=== PATIENT | male | born 1970 | race Caucasian/White ===

== ENCOUNTER 2021-07-29 10:57 | Emergency (ER) | payer OTHER ==
[~2021-07-29] VITALS: Ht 180.3 cm; Wt 113.4 kg
[2021-07-29] MEDS ORDERED: LEVEMIR100 UNIT/1 (11:03)
[2021-07-29] MEDS ORDERED: LISINOPRIL10 MG PO (11:03)
[2021-07-29] MEDS ORDERED: METFORMIN HCL500 M3 PO (11:03)
[2021-07-29] MEDS ORDERED: BUPROPION XL300 MG PO (11:03)
[2021-07-29] MEDS ORDERED: PROAIR HFA8.5 GM INH (12:13)
[2021-07-29] MEDS ORDERED: APAP W/CODEINE1 TA2 PO (12:13)
[2021-07-29] MEDS ORDERED: TESSALON PERLE100 MG PO (12:13)
[2021-07-29 12:27] VITALS: BP 134/72
== END 2021-07-29 12:28 | disposition home or self-care (01) ==
LOC: M.ERS 10:57
DX: U07.1 COVID-19 (principal); E11.9 Type 2 diabetes mellitus without complications; Z79.899 Other long term (current) drug therapy; Z79.4 Long term (current) use of insulin; Z88.0 Allergy status to penicillin

== ENCOUNTER 2021-08-03 12:37 | Emergency (ER) | payer OTHER ==
[~2021-08-03] VITALS: Ht 180.3 cm; Wt 117.9 kg
[~2021-08-03 12:37] MED LIST: APAP W/CODEINE1 TA2 PO; BUPROPION XL300 MG PO; LEVEMIR100 UNIT/1; LISINOPRIL10 MG PO; METFORMIN HCL500 M3 PO; PROAIR HFA8.5 GM INH; TESSALON PERLE100 MG PO
[2021-08-03] MEDS ORDERED: DEXAMETHASONE 44 M1 PO (13:11)
[2021-08-03] MEDS ORDERED: ZPAK PO (13:11)
[2021-08-03] MEDS ORDERED: PROMETH-CODEIN 65 ML PO (13:11)
[2021-08-03 13:20] VITALS: BP 150/100
== END 2021-08-03 13:21 | disposition home or self-care (01) ==
LOC: M.ERS 12:37
DX: U07.1 COVID-19 (principal); E11.9 Type 2 diabetes mellitus without complications; Z79.4 Long term (current) use of insulin; Z79.899 Other long term (current) drug therapy; Z88.0 Allergy status to penicillin

== ENCOUNTER 2021-08-05 08:15 | Inpatient (IN) | payer OTHER ==
[~2021-08-05] VITALS: Ht 180.3 cm; Wt 89.1 kg
[~2021-08-05 08:15] MED LIST changes: +DEXAMETHASONE 44 M1 PO; +PROMETH-CODEIN 65 ML PO; +ZPAK PO
[2021-08-05 08:17] VITALS: BP 164/85
[2021-08-05 09:09] LABS: ABSOLUTE LYMPHOCYTES 0.7 thou/uL (0.8-5.3); ABSOLUTE MONOCYTES 0.5 thou/uL (0.0-1.2); ABSOLUTE NEUTROPHILS 5.9 thou/uL (1.6-8.1); BASOPHILS 0.1 %; HEMATOCRIT 46.1 % (42.0-52.0); HEMOGLOBIN 15.8 gm/dL (14.0-18.0); LYMPHOCYTES 9.3 %; MCH 30.5 pg (26.0-34.0); MCHC 34.2 g/dL (28.0-37.0); MCV 89.4 fL (80.0-100.0); MONOCYTES 6.9 %; NUCLEATED RBCS 0 /100WBC; PLATELET COUNT* 144 thou/uL (150-400); POLYS 83.7 %; RBC 5.16 mil/uL (4.50-6.00); RDW-CV 12.6 % (10.5-14.5); WBC 7.1 thou/uL (4.0-11.0)
[2021-08-05 09:40] LABS: CREATININE 1.3 mg/dL (0.6-1.3); POTASSIUM 4.6 mmol/L (3.5-5.1)
[2021-08-05 09:44] LABS: ALBUMIN 3.1 g/dL (3.4-5.0); MAGNESIUM 1.8 mg/dL (1.8-2.4); TOTAL BILIRUBIN 0.6 mg/dL (<0.1-1.0); TOTAL PROTEIN 7.2 g/dL (6.4-8.2)
--- NOTE | 2021-08-05 11:01 | EKG ---
[place] [address] ELECTROCARDIOGRAM REPORT Name: JULIA MITCHELL Room: [place] [address] ADM IN [facility]#: [id number] Admission: 08/05/21 Attend Phys: Gerard Fitzgerald Discharge: Date of : 68 Date of Service: 08/05/21 0838 Report #: [id number] THIS REPORT FOR: //name// [facility] ED Test Date: 2021-08-05 Test Time: 08:38:08 Pat Name: JULIA MITCHELL Department: Room: [facility] Gender: M Medical Lab Assistant: CD : 1970 Requested By: Charles Leonardo Order Number: [id number] MD: Juan Francisco Soto Measurements Intervals [place] Rate: 109 P: 47 IN: 139 QRS: 40 QRSD: 86 T: -43 QT: 325 QTc: 438 Interpretive Statements Sinus tachycardia Borderline T abnormalities, inferior leads No previous ECG available for comparison Electronically Signed On 08-05-2021 11:01:49 CDT by Juan Francisco Soto [email or web address] <ELECTRONICALLY SIGNED> By: Juan Francisco Soto MD, [facility] 08/05/21 1101 0838 0838 Juan Francisco Soto MD, [facility] /EPI
[2021-08-05 12:33] VITALS: BP 140/77
[2021-08-05 13:13] VITALS: BP 130/89
[2021-08-05 15:49] VITALS: BP 142/76
[2021-08-05 21:00] VITALS: BP 128/82
[2021-08-05 22:29] LABS: BE 3.7 mmol/L (-2 to +3); PCO2 37.3 mmHg (35.0-45.0); PO2 73.5 mmHg (75.0-100.0)
[2021-08-06] VITALS (7 sets, daily range): BP systolic 120–147; BP diastolic 78–88
[2021-08-06 05:58] LABS: HEMATOCRIT 40.1 % (42.0-52.0); MCH 30.5 pg (26.0-34.0); MCHC 34.8 g/dL (28.0-37.0); MCV 87.7 fL (80.0-100.0); MPV 7.6 fl. (7.2-11.1); RBC 4.57 mil/uL (4.50-6.00); RDW-CV 12.4 % (10.5-14.5); WBC 7.8 thou/uL (4.0-11.0)
[2021-08-06 06:10] LABS: CALCIUM 8.1 mg/dL (8.5-10.1); CREATININE 0.9 mg/dL (0.6-1.3)
[2021-08-07] VITALS: BP 136/84
[2021-08-07 04:00] VITALS: BP 147/84
[2021-08-07 05:00] LABS: HEMATOCRIT 40.7 % (42.0-52.0); HEMOGLOBIN 14.1 gm/dL (14.0-18.0); MCH 30.5 pg (26.0-34.0); MCHC 34.7 g/dL (28.0-37.0); MCV 88.1 fL (80.0-100.0); MPV 7.1 fl. (7.2-11.1); RBC 4.62 mil/uL (4.50-6.00); RDW-CV 12.6 % (10.5-14.5)
[2021-08-07 05:08] LABS: CALCIUM 8.5 mg/dL (8.5-10.1); CREATININE 0.8 mg/dL (0.6-1.3)
[2021-08-07 08:00] VITALS: BP 139/89
[2021-08-07 11:30] VITALS: BP 142/82
[2021-08-07 15:50] VITALS: BP 149/90
[2021-08-07 17:08] LABS: APTT 26.4 Seconds (25.0-31.3); PROTIME 10.8 Seconds (9.20-11.50)
[2021-08-07 18:37] LABS: URINE BILIRUBIN NEGATIVE (Negative); URINE BLOOD NEGATIVE (Negative); URINE CLARITY CLEAR; URINE COLOR YELLOW; URINE GLUCOSE-RANDOM TRACE (Negative); URINE KETONES 2+ (Negative); URINE LEUKOCYTES-REFLEX NEGATIVE (Negative); URINE NITRITE-REFLEX NEGATIVE (Negative); URINE PROTEIN 1+ (Negative); URINE SPECIFIC GRAVITY >= 1.030 (1.005-1.030)
[2021-08-08] VITALS (8 sets, daily range): BP systolic 106–153; BP diastolic 52–94
[2021-08-08 04:04] LABS: HEMATOCRIT 41.6 % (42.0-52.0); HEMOGLOBIN 14.3 gm/dL (14.0-18.0); MCH 30.9 pg (26.0-34.0); MCHC 34.5 g/dL (28.0-37.0); MCV 89.5 fL (80.0-100.0); NUCLEATED RBCS 0 /100WBC; PLATELET COUNT* 205 thou/uL (150-400); RBC 4.65 mil/uL (4.50-6.00); RDW-CV 12.7 % (10.5-14.5); WBC 5.1 thou/uL (4.0-11.0)
[2021-08-08 04:44] LABS: ALBUMIN 2.3 g/dL (3.4-5.0); CALCIUM 8.8 mg/dL (8.5-10.1); CREATININE 1.1 mg/dL (0.6-1.3); MAGNESIUM 2.3 mg/dL (1.8-2.4); TOTAL BILIRUBIN 0.7 mg/dL (<0.1-1.0); TOTAL PROTEIN 6.9 g/dL (6.4-8.2)
[2021-08-08 05:31] LABS: ABSOLUTE LYMPHOCYTES 0.4 thou/uL (0.8-5.3); ABSOLUTE MONOCYTES 0.2 thou/uL (0.0-1.2); ABSOLUTE NEUTROPHILS 4.5 thou/uL (1.6-8.1); LARGE PLATELETS FEW; PLATELET ESTIMATE ADEQUATE
[2021-08-08 05:32] LABS: TOXIC GRANULATION Occasional
[2021-08-08 13:15] LABS: PCO2 34.9 mmHg (35.0-45.0)
[2021-08-08 13:17] LABS: PO2 289.6 mmHg (75.0-100.0)
--- NOTE | 2021-08-08 13:48 | 2DMMODE ---
[place] [address] 2 D/M-MODE ECHOCARDIOGRAM Name: JULIA MITCHELL Room: [address] IN .Jemima.#: [id number] Admission: 08/05/21 Attend Phys: Gerard Fitzgerald Discharge: Date of : 68 Date of Service: 08/08/21 1348 Report #: [id number] THIS REPORT FOR: cc: FAM - No family physician/PCP FAM - No family physician/PCP Andrés Martinez MD [facility] ~ APPROVED REPORT Study performed: 08/08/2021 11:05:12 EXAM: Comprehensive 2D, Doppler, and color-flow Echocardiogram Patient Location: In-Patient Room #: 109 Status: routine BSA: 2.37 HR: 91 bpm BP: 106/52 mmHg Rhythm: NSR Other Information Study Quality: Good Indications HYPOXIA 2D Dimensions IVSd: 10.68 (7-11mm) LVOT Diam: 23.02 (18-24mm) LVDd: 39.96 mm PWd: 9.86 (7-11mm) Ascending Ao: 34.60 (22-36mm) LVDs: 27.46 (25-40mm) Aortic Root: 35.86 mm Volumes Left Atrial Volume (Systole) LA ESV Index: 16.80 mL/m2 Aortic Valve AoV Peak Gwyn.: 1.18 m/s AO Peak Gr.: 5.56 mmHg LVOT Max P.08 mmHg AO Mean Gr.: 2.83 mmHg LVOT Mean P.83 mmHg LVOT Max V: 1.01 m/s AO V2 VTI: 17.02 cm LVOT Mean V: 0.62 m/s ANABELLA (VTI): 4.10 cm2 LVOT V1 VTI: 16.76 [place] [address] 2 D/M-MODE ECHOCARDIOGRAM Name: JULIA MITCHELL Room: [address] IN [facility].#: [id number] Admission: 08/05/21 Attend Phys: Gerard Fitzgerald Discharge: Date of : 68 Date of Service: 08/08/21 1348 Report #: [id number] Mitral Valve E/A Ratio: 1.11 MV Decel. Time: 263.14 ms MV E Max Gwyn.: 0.72 m/s MV PHT: 76.31 ms MVA (PHT): 2.88 cm2 TDI E/Lateral E': 6.55 E/Medial E': 7.20 Medial E' Gwyn.: 0.10 m/s Lateral E' Gwyn.: 0.11 m/s Pulmonary Valve PV Peak Gwyn.: 0.90 m/s PV Peak Gr.: 3.27 mmHg Left Ventricle The left ventricle is normal size. There is normal LV segmental wall motion. There is normal left ventricular wall thickness. Left ventricular systolic function is normal. The left ventricular ejection fraction is within the normal range. LVEF is 60-65%. The left ventricular diastolic function is normal. Right Ventricle The right ventricle is normal size. The right ventricular systolic function is normal. Atria The left atrium size is normal. The right atrium size is normal. Aortic Valve The aortic valve is normal in structure. No aortic regurgitation is present. There is no aortic valvular stenosis. Mitral Valve The mitral valve is normal in structure. There is no mitral valve regurgitation noted. No evidence of mitral valve stenosis. Tricuspid Valve The tricuspid valve is normal in structure. Unable to assess PA pressure. Trace tricuspid regurgitation. Pulmonic Valve The pulmonary valve is normal in structure. [place] [address] 2 D/M-MODE ECHOCARDIOGRAM Name: JULIA MITCHELL Room: [address] IN [facility]#: [id number] Admission: 08/05/21 Attend Phys: Gerard Fitzgerald Discharge: Date of : 68 Date of Service: 08/08/21 1348 Report #: [id number] Great Vessels The aortic root is normal in size. IVC is normal in size and collapses >50% with inspiration. Pericardium There is no pericardial effusion. <Conclusion> The left ventricle is normal size. There is normal left ventricular wall thickness. Left ventricular systolic function is normal. The left ventricular ejection fraction is within the normal range. LVEF is 60-65%. The left ventricular diastolic function is normal. The right ventricle is normal size. The left atrium size is normal. The aortic valve is normal in structure. The mitral valve is normal in structure. The tricuspid valve is normal in structure. IVC is normal in size and collapses >50% with inspiration. There is no pericardial effusion. There is normal LV segmental wall motion. <ELECTRONICALLY SIGNED> By: Andrés Martinez MD, FACC 08/08/21 1348 1348 1348 Andrés Martinez MD, FACC /INF
--- NOTE | 2021-08-08 14:16 | CON ---
[address] [address] CONSULTATION Name: JULIA MITCHELL Room: [address] IN M.R.#: [id number] Admission: 08/05/21 Attend Phys: Rita Up Discharge: Date of : 68 Report #: [id number] THIS REPORT FOR: cc: PIPE - No family physician/PCP FAM - No family physician/PCP Ghanshyam Latif MD ~ DATE OF CONSULTATION: 08/07/2021 REQUESTING PHYSICIAN: Dr. Bhardwaj. INDICATION FOR CONSULTATION: Acute hypoxemic respiratory failure secondary to COVID-19. HISTORY OF PRESENT ILLNESS: A 51-year-old gentleman with past medical history is as mentioned below. He does not have a history of smoking. He is overweight with a body mass index of 37 and does have a history of diabetes, hypertension as well as posttraumatic stress disorder. The patient is now admitted with increasing shortness of breath 2 days ago, he had reported symptoms for 8 days prior to hospitalization. He has not been vaccinated for COVID-19. He reported progressively worsening shortness of breath as well as a significant cough as well as nausea. There is only scanty sputum production. No upper respiratory complaints. Mild swelling of lower extremities. No calf pain. Upon arrival, the patient's O2 saturation was 84% on room air. There has been a progressive worsening in his oxygen needs. The patient currently is on a BiPAP with 100% FiO2. He is tachypneic, respiratory rate has been around 35-40. So far, he appears to be well compensated with this. He is maintaining O2 saturation in the low 90s. The patient does not state that he is anxious; however, it does appear to me that he is. He does report that earlier he had a fever as well, but no chills. REVIEW OF SYSTEMS: Twelve points is negative except as mentioned above. PAST MEDICAL HISTORY: Diabetes, posttraumatic stress disorder, hypertension, and obesity. SOCIAL HISTORY: No known history of smoking, ethanol abuse, or drug abuse. CURRENT MEDICATIONS: List in [facility] reviewed. HOME MEDICATIONS: List also in [facility] reviewed. ALLERGIES: REPORTEDLY ALLERGIC TO PENICILLINS. FAMILY HISTORY: [place] [address] CONSULTATION Name: JULIA MITCHELL Room: [address]#: [id number] Admission: 08/05/21 Attend Phys: Rita Up Discharge: Date of : 68 Report #: [id number] PHYSICAL EXAMINATION: GENERAL: He is alert, awake, and oriented. VITAL SIGNS: He is on a BiPAP on AVAPS mode, tidal volume is set as 550, pressure support min is set at 14, EPAP is 12. Despite a high respiratory rate of 35-40, he appears to be well compensated at this time with a pulse of 90, blood pressure is 149/90. He is saturating 94%. He is afebrile with a temperature of 36.6. Body mass index 37. HEENT: Normocephalic and atraumatic. Pupils are equal, narrow airway. Throat examination is limited due to presence of BiPAP. NECK: Does not show raised JVP asymmetry, mass or lymph nodes. CHEST: Symmetrical expansion on inspection and palpation. On auscultation, breath sounds are bilaterally equal, but decreased. Expirations are prolonged. I feel that there is likely a component of bronchospasm as well. HEART: Regular. There is no murmur. ABDOMEN: Soft and nontender. EXTREMITIES: Lower extremities do show trace to 1+ edema bilaterally. There is no calf tenderness. SKIN: Dry and intact. NEUROLOGIC: Moves all extremities bilaterally equally and spontaneously with no focal deficit identified. LABORATORY AND IMAGING DATA: The patient's chest x-ray is obtained now and compared with a chest x-ray done 2 days ago. There are bilateral infiltrates with no major change compared with 2 days ago. He does have some cardiomegaly as well. The patient's lab work is in [facility]. This is reviewed. I do not have recent coags or D-dimer available. His COVID-19 antigen is positive. His BUN is mildly elevated to 20, but creatinine is normal at 0.8. Last magnesium is 1.8 from 2 days ago. ASSESSMENT AND PLAN: 1. Acute hypoxemic respiratory failure secondary to COVID-19. At this time, I would keep him on the BiPAP. I increased the target tidal volume to 600 and increased pressure support minimum to 16. We will see if this leads to any reduction in respiratory rate. Also, it appears to me that he is anxious. He is ordered p.r.n. Ativan IV; however, he has not received any. At this time, I would go ahead and give him low dose p.o. Xanax. Also, I switched his melatonin over to scheduled and we will see if this leads to a response. If he fails to improve, then I recommend having a low threshold of transferring him to the ICU and starting a Precedex drip. 2. COVID-19 with acute respiratory distress syndrome (ARDS). I reviewed the chest x-ray 2 days ago with a chest x-ray done today. Findings are consistent with ARDS secondary to COVID-19; however, it does not look worse compared with 2 days ago. If anything, it will be possible that it is slightly better. I [address] [address] CONSULTATION Name: JULIA MITCHELL Room: [address] IN M.R.#: [id number] Admission: 08/05/21 Attend Phys: Rita Up Discharge: Date of : 68 Report #: [id number] recommend starting dexamethasone considering significant hypoxemia as well as the fact that I feel that there likely is an underlying component of bronchospasm as well. We will start with giving him 10 mg now and then 8 b.i.d. I would expect his glucoses to rise with dexamethasone and recommend adjusting insulin accordingly. He is already on remdesivir and I recommend continuing the same. Watch LFTs while on remdesivir. I recommend giving him 1 dose of Actemra today as well. He has received 1 unit of convalescent plasma as well. I do not feel strongly either way regarding administering or holding off on a second unit of convalescent plasma. 3. Pulmonary infiltrates. He received only 2 doses of Zithromax at home. At this time, we will cover him with Levaquin for secondary bacterial infections. I did order a sputum culture and nasal swab for MRSA as well as a procalcitonin level. Once these are back, we will reassess. 4. Fluid overload. He does have a component of fluid overload as well. Note that the chest x-ray also does show some cardiomegaly as he has a history of hypertension. I will go ahead and give him Lasix. We will give him potassium and magnesium with Lasix as I do not want these to drop. 5. Evaluation for thromboembolic phenomena. Note that he has worsened despite the fact that his chest x-ray has not worsened. Therefore, I feel that we should evaluate for thromboembolism. I recommend obtaining coags including a D-dimer now. If the D-dimer is elevated, then I will evaluate for thromboembolism and in that case, pending evaluation, I may consider increasing the dose of Lovenox as well. Note to currently be on 30 mg b.i.d. 6. Diabetes. Would expect hyperglycemia to worsen on dexamethasone, but recommended adjusting insulin accordingly. 7. Gastrointestinal prophylaxis, Protonix. 8. Clostridium difficile prophylaxis, Lactinex. 9. Obesity. I suspect that there is obesity/suspected obstructive sleep apnea, on BiPAP. 10. Past medical history of hypertension. 11. Past medical history of posttraumatic stress disorder. The patient is critically ill at this time. Total time spent providing critical care to this patient today is 42 minutes. <ELECTRONICALLY SIGNED> By: Ghanshyam Latif MD 08/08/21 1416 1554 [id number] Latif MD /nt
[2021-08-09 00:06] VITALS: BP 155/93
[2021-08-09 03:46] VITALS: BP 158/85
[2021-08-09 09:15] LABS: HEMATOCRIT 42.4 % (42.0-52.0); HEMOGLOBIN 14.4 gm/dL (14.0-18.0); MCH 30.2 pg (26.0-34.0); MCV 88.6 fL (80.0-100.0); MPV 7.2 fl. (7.2-11.1); RBC 4.78 mil/uL (4.50-6.00); RDW-CV 12.6 % (10.5-14.5); WBC 11.6 thou/uL (4.0-11.0)
[2021-08-09 09:31] LABS: ALBUMIN 2.7 g/dL (3.4-5.0); CALCIUM 9.5 mg/dL (8.5-10.1); CREATININE 0.9 mg/dL (0.6-1.3); MAGNESIUM 2.1 mg/dL (1.8-2.4); POTASSIUM 4.2 mmol/L (3.5-5.1); TOTAL BILIRUBIN 0.6 mg/dL (<0.1-1.0); TOTAL PROTEIN 7.2 g/dL (6.4-8.2)
[2021-08-09 10:19] VITALS: BP 114/69
[2021-08-09 12:00] VITALS: BP 140/83
[2021-08-09 20:30] VITALS: BP 146/85
[2021-08-10] VITALS (7 sets, daily range): BP systolic 126–152; BP diastolic 70–92
[2021-08-10 04:59] LABS: ABSOLUTE EOSINOPHILS 0.1 thou/uL (0.0-0.7); ABSOLUTE LYMPHOCYTES 0.3 thou/uL (0.8-5.3); ABSOLUTE MONOCYTES 0.5 thou/uL (0.0-1.2); BASOPHILS 0.3 %; HEMATOCRIT 39.9 % (42.0-52.0); HEMOGLOBIN 13.7 gm/dL (14.0-18.0); LYMPHOCYTES 3.8 %; MCH 30.8 pg (26.0-34.0); MCHC 34.4 g/dL (28.0-37.0); MCV 89.5 fL (80.0-100.0); MONOCYTES 5.8 %; MPV 7.8 fl. (7.2-11.1); NUCLEATED RBCS 0 /100WBC; PLATELET COUNT* 298 thou/uL (150-400); POLYS 89.1 %; RBC 4.46 mil/uL (4.50-6.00); RDW-CV 12.5 % (10.5-14.5)
[2021-08-10 05:02] LABS: ALBUMIN 2.5 g/dL (3.4-5.0); ALKALINE PHOSPHATASE 79 U/L (46-116); ANION GAP < 0 mmol/L (7-16); BUN 24 mg/dL (7-18); CALCIUM 9.1 mg/dL (8.5-10.1); CHLORIDE 105 mmol/L (98-107); CO2 33 mmol/L (21-32); GLUCOSE 209 mg/dL (70-99); MAGNESIUM 1.9 mg/dL (1.8-2.4); POTASSIUM 4.4 mmol/L (3.5-5.1); SGOT 43 U/L (15-37); SGPT 40 U/L (30-65); SODIUM 134 mmol/L (136-145); TOTAL BILIRUBIN 0.5 mg/dL (<0.1-1.0); TOTAL PROTEIN 6.5 g/dL (6.4-8.2)
[2021-08-10 05:05] LABS: PREALBUMIN 15.4 mg/dL (18.0-35.7)
[2021-08-10 19:55] LABS: PCO2 38.1 mmHg (35.0-45.0); PO2 93.9 mmHg (75.0-100.0); pH 7.463 (7.340-7.450)
[2021-08-11] VITALS (26 sets, daily range): BP systolic 79–223; BP diastolic 43–126
[2021-08-11 08:11] LABS: ABSOLUTE EOSINOPHILS 0.1 thou/uL (0.0-0.7); ABSOLUTE LYMPHOCYTES 0.5 thou/uL (0.8-5.3); ABSOLUTE MONOCYTES 0.4 thou/uL (0.0-1.2); ABSOLUTE NEUTROPHILS 6.6 thou/uL (1.6-8.1); BASOPHILS 0.2 %; EOSINOPHILS 1.8 %; HEMATOCRIT 44.7 % (42.0-52.0); HEMOGLOBIN 15.2 gm/dL (14.0-18.0); LYMPHOCYTES 6.9 %; MCH 30.1 pg (26.0-34.0); MCHC 33.9 g/dL (28.0-37.0); MCV 88.9 fL (80.0-100.0); MONOCYTES 4.6 %; MPV 6.9 fl. (7.2-11.1); NUCLEATED RBCS 0 /100WBC; PLATELET COUNT* 306 thou/uL (150-400); POLYS 86.5 %; RBC 5.03 mil/uL (4.50-6.00); RDW-CV 12.6 % (10.5-14.5); WBC 7.6 thou/uL (4.0-11.0)
[2021-08-11 08:27] LABS: ALBUMIN 2.7 g/dL (3.4-5.0); CALCIUM 9.2 mg/dL (8.5-10.1); MAGNESIUM 2.1 mg/dL (1.8-2.4); POTASSIUM 5.2 mmol/L (3.5-5.1); TOTAL BILIRUBIN 0.7 mg/dL (<0.1-1.0); TOTAL PROTEIN 6.5 g/dL (6.4-8.2)
[2021-08-11 13:00] LABS: BE 5.7 mmol/L (-2 to +3); PCO2 39.9 mmHg (35.0-45.0); PO2 62.1 mmHg (75.0-100.0); pH 7.487 (7.340-7.450)
[2021-08-11 15:43] LABS: CALCIUM 8.6 mg/dL (8.5-10.1); CREATININE 1.1 mg/dL (0.6-1.3); POTASSIUM 4.9 mmol/L (3.5-5.1)
[2021-08-11 19:42] LABS: BE 1.8 mmol/L (-2 to +3); PO2 94.8 mmHg (75.0-100.0); pH 7.341 (7.340-7.450)
[2021-08-11 19:45] LABS: PCO2 54.9 mmHg (35.0-45.0)
[2021-08-12] VITALS (49 sets, daily range): BP systolic 92–157; BP diastolic 59–86
[2021-08-12 04:59] LABS: ABSOLUTE LYMPHOCYTES 0.3 thou/uL (0.8-5.3); ABSOLUTE MONOCYTES 0.5 thou/uL (0.0-1.2); ABSOLUTE NEUTROPHILS 8.9 thou/uL (1.6-8.1); BASOPHILS 0.2 %; EOSINOPHILS 0.3 %; HEMATOCRIT 43.8 % (42.0-52.0); HEMOGLOBIN 15.2 gm/dL (14.0-18.0); LYMPHOCYTES 2.9 %; MCH 30.7 pg (26.0-34.0); MCHC 34.8 g/dL (28.0-37.0); MCV 88.3 fL (80.0-100.0); MONOCYTES 5.2 %; NUCLEATED RBCS 0 /100WBC; PLATELET COUNT* 313 thou/uL (150-400); POLYS 91.4 %; RBC 4.96 mil/uL (4.50-6.00); RDW-CV 12.5 % (10.5-14.5); WBC 9.8 thou/uL (4.0-11.0)
[2021-08-12 05:27] LABS: ALBUMIN 2.7 g/dL (3.4-5.0); CALCIUM 8.1 mg/dL (8.5-10.1); CREATININE 1.3 mg/dL (0.6-1.3); MAGNESIUM 2.3 mg/dL (1.8-2.4); TOTAL BILIRUBIN 0.7 mg/dL (<0.1-1.0); TOTAL PROTEIN 6.3 g/dL (6.4-8.2)
[2021-08-12 05:43] LABS: POTASSIUM 6.2 mmol/L (3.5-5.1)
[2021-08-12 12:35] LABS: CALCIUM 8.1 mg/dL (8.5-10.1); CREATININE 1.3 mg/dL (0.6-1.3); POTASSIUM 5.4 mmol/L (3.5-5.1)
[2021-08-12 12:40] LABS: ALBUMIN 2.7 g/dL (3.4-5.0); MAGNESIUM 2.3 mg/dL (1.8-2.4); TOTAL BILIRUBIN 0.7 mg/dL (<0.1-1.0); TOTAL PROTEIN 6.3 g/dL (6.4-8.2)
[2021-08-12 12:48] LABS: BE 2.2 mmol/L (-2 to +3); PCO2 45.8 mmHg (35.0-45.0); PO2 91.5 mmHg (75.0-100.0); pH 7.399 (7.340-7.450)
[2021-08-12 19:11] LABS: URINE BILIRUBIN NEGATIVE (Negative); URINE BLOOD 2+ (Negative); URINE COLOR YELLOW; URINE GLUCOSE-RANDOM NEGATIVE (Negative); URINE KETONES NEGATIVE (Negative); URINE LEUKOCYTES-REFLEX NEGATIVE (Negative); URINE NITRITE-REFLEX NEGATIVE (Negative); URINE PROTEIN NEGATIVE (Negative); URINE SPECIFIC GRAVITY 1.025 (1.005-1.030); URINE UROBILINOGEN 0.2 E.U./dl (0.2-1.0)
[2021-08-12 19:20] LABS: URINE CLARITY HAZY
[2021-08-12 19:32] LABS: BACTERIA-REFLEX None Seen /HPF (None Seen); CASTS None Seen /LPF (None Seen); CRYSTALS None Seen /LPF (None Seen); SQUAMOUS 0-3 Few /LPF (0-3); URINE RBC 3-10 Few /HPF (0-2); URINE WBC-REFLEX 0-5 Rare /HPF (0-5)
[2021-08-13] VITALS (47 sets, daily range): BP systolic 70–156; BP diastolic 45–76
[2021-08-13 06:25] LABS: ABSOLUTE LYMPHOCYTES 0.5 thou/uL (0.8-5.3); ABSOLUTE MONOCYTES 0.6 thou/uL (0.0-1.2); ABSOLUTE NEUTROPHILS 8.5 thou/uL (1.6-8.1); BASOPHILS 0.1 %; EOSINOPHILS 0.4 %; HEMATOCRIT 43.7 % (42.0-52.0); LYMPHOCYTES 5.7 %; MCH 30.4 pg (26.0-34.0); MCHC 34.4 g/dL (28.0-37.0); MCV 88.4 fL (80.0-100.0); MONOCYTES 6.1 %; MPV 7.3 fl. (7.2-11.1); NUCLEATED RBCS 0 /100WBC; PLATELET COUNT* 241 thou/uL (150-400); POLYS 87.7 %; RBC 4.95 mil/uL (4.50-6.00); RDW-CV 12.4 % (10.5-14.5); WBC 9.7 thou/uL (4.0-11.0)
[2021-08-13 06:51] LABS: ALBUMIN 2.4 g/dL (3.4-5.0); CALCIUM 7.7 mg/dL (8.5-10.1); MAGNESIUM 2.2 mg/dL (1.8-2.4); PHOSPHORUS* 3.3 mg/dL (2.5-4.9); POTASSIUM 5.5 mmol/L (3.5-5.1); TOTAL BILIRUBIN 0.9 mg/dL (<0.1-1.0); TOTAL PROTEIN 5.9 g/dL (6.4-8.2)
[2021-08-13 07:04] LABS: PREALBUMIN 28.9 mg/dL (18.0-35.7)
[2021-08-13 09:16] LABS: BE 4.7 mmol/L (-2 to +3); PCO2 43.2 mmHg (35.0-45.0); PO2 98.5 mmHg (75.0-100.0)
[2021-08-14] VITALS (47 sets, daily range): BP systolic 103–150; BP diastolic 52–76
[2021-08-14 06:26] LABS: ABSOLUTE LYMPHOCYTES 0.6 thou/uL (0.8-5.3); ABSOLUTE MONOCYTES 0.8 thou/uL (0.0-1.2); ABSOLUTE NEUTROPHILS 10.9 thou/uL (1.6-8.1); BASOPHILS 0.2 %; EOSINOPHILS 0.1 %; HEMATOCRIT 40.1 % (42.0-52.0); HEMOGLOBIN 13.6 gm/dL (14.0-18.0); LYMPHOCYTES 5.2 %; MCV 88.3 fL (80.0-100.0); MONOCYTES 6.5 %; MPV 7.7 fl. (7.2-11.1); NUCLEATED RBCS 0 /100WBC; PLATELET COUNT* 171 thou/uL (150-400); RBC 4.54 mil/uL (4.50-6.00); RDW-CV 12.6 % (10.5-14.5); WBC 12.4 thou/uL (4.0-11.0)
[2021-08-14 06:47] LABS: ALBUMIN 2.3 g/dL (3.4-5.0); CALCIUM 7.4 mg/dL (8.5-10.1); CREATININE 1.1 mg/dL (0.6-1.3); TOTAL BILIRUBIN 0.9 mg/dL (<0.1-1.0); TOTAL PROTEIN 5.3 g/dL (6.4-8.2)
[2021-08-14 06:48] LABS: POTASSIUM 5.4 mmol/L (3.5-5.1)
[2021-08-14 06:50] LABS: PREALBUMIN 28.1 mg/dL (18.0-35.7)
[2021-08-14 11:29] LABS: BE 1.4 mmol/L (-2 to +3); PCO2 35.9 mmHg (35.0-45.0); PO2 80.2 mmHg (75.0-100.0); pH 7.459 (7.340-7.450)
[2021-08-15] VITALS (48 sets, daily range): BP systolic 100–140; BP diastolic 57–75
[2021-08-15 07:53] LABS: CALCIUM 7.8 mg/dL (8.5-10.1)
[2021-08-15 11:16] LABS: BE 3.1 mmol/L (-2 to +3); PCO2 40.8 mmHg (35.0-45.0); PO2 66.4 mmHg (75.0-100.0); pH 7.445 (7.340-7.450)
[2021-08-15 11:19] LABS: MAGNESIUM 2.1 mg/dL (1.8-2.4)
[2021-08-15 15:18] LABS: ABSOLUTE BASOPHILS 0.1 thou/uL (0.0-0.2); ABSOLUTE LYMPHOCYTES 0.9 thou/uL (0.8-5.3); ABSOLUTE MONOCYTES 1.1 thou/uL (0.0-1.2); ABSOLUTE NEUTROPHILS 14.4 thou/uL (1.6-8.1); BASOPHILS 0.6 %; EOSINOPHILS 0.1 %; HEMATOCRIT 39.1 % (42.0-52.0); HEMOGLOBIN 13.1 gm/dL (14.0-18.0); LYMPHOCYTES 5.2 %; MCH 29.9 pg (26.0-34.0); MCHC 33.5 g/dL (28.0-37.0); MONOCYTES 6.6 %; MPV 7.6 fl. (7.2-11.1); NUCLEATED RBCS 0 /100WBC; PLATELET COUNT* 163 thou/uL (150-400); POLYS 87.5 %; RBC 4.39 mil/uL (4.50-6.00); RDW-CV 12.7 % (10.5-14.5); WBC 16.5 thou/uL (4.0-11.0)
[2021-08-15 15:30] LABS: ALBUMIN 4.8 g/dL (3.4-5.0); CALCIUM 7.2 mg/dL (8.5-10.1); DIRECT BILIRUBIN 0.3 mg/dL (<0.1-0.3); POTASSIUM 4.3 mmol/L (3.5-5.1); TOTAL BILIRUBIN 0.8 mg/dL (<0.1-1.0); TOTAL PROTEIN 7.1 g/dL (6.4-8.2)
[2021-08-16] VITALS (48 sets, daily range): BP systolic 104–162; BP diastolic 53–79
[2021-08-16 03:55] LABS: HEMATOCRIT 37.7 % (42.0-52.0); MCHC 34.6 g/dL (28.0-37.0)
[2021-08-16 03:57] LABS: MCH 30.3 pg (26.0-34.0); MCV 87.4 fL (80.0-100.0); MPV 10.1 fl. (7.2-11.1); NUCLEATED RBCS 0 /100WBC; RBC 4.31 mil/uL (4.50-6.00); RDW-CV 13.6 % (10.5-14.5); WBC 15.2 thou/uL (4.0-11.0)
[2021-08-16 04:09] LABS: PLATELET COUNT* 261 thou/uL (150-400)
[2021-08-16 05:11] LABS: ALBUMIN 2.9 g/dL (3.4-5.0); CALCIUM 7.8 mg/dL (8.5-10.1); MAGNESIUM 2.1 mg/dL (1.8-2.4); POTASSIUM 4.7 mmol/L (3.5-5.1); TOTAL PROTEIN 5.2 g/dL (6.4-8.2)
[2021-08-16 07:03] LABS: ABSOLUTE LYMPHOCYTES 1.4 thou/uL (0.8-5.3); ABSOLUTE MONOCYTES 0.3 thou/uL (0.0-1.2); ABSOLUTE NEUTROPHILS 13.5 thou/uL (1.6-8.1); ANISOCYTOSIS 1+; PLATELET ESTIMATE ADEQUATE; POIKILOCYTOSIS 1+
[2021-08-16 08:31] LABS: BE 0.3 mmol/L (-2 to +3); PCO2 38.1 mmHg (35.0-45.0); PO2 77.5 mmHg (75.0-100.0); pH 7.426 (7.340-7.450)
[2021-08-17] VITALS (76 sets, daily range): BP systolic 84–156; BP diastolic 49–78
[2021-08-17 04:01] LABS: ABSOLUTE LYMPHOCYTES 0.7 thou/uL (0.8-5.3); ABSOLUTE MONOCYTES 0.7 thou/uL (0.0-1.2); ABSOLUTE NEUTROPHILS 12.7 thou/uL (1.6-8.1); BASOPHILS 0.3 %; EOSINOPHILS 0.1 %; HEMATOCRIT 37.4 % (42.0-52.0); HEMOGLOBIN 12.6 gm/dL (14.0-18.0); LYMPHOCYTES 4.6 %; MCH 30.2 pg (26.0-34.0); MCHC 33.6 g/dL (28.0-37.0); MCV 89.7 fL (80.0-100.0); MONOCYTES 4.9 %; MPV 9.9 fl. (7.2-11.1); NUCLEATED RBCS 0 /100WBC; POLYS 90.1 %; RBC 4.17 mil/uL (4.50-6.00); RDW-CV 13.2 % (10.5-14.5); WBC 14.1 thou/uL (4.0-11.0)
[2021-08-17 04:11] LABS: PLATELET COUNT* 180 thou/uL (150-400)
[2021-08-17 04:21] LABS: ALBUMIN 2.7 g/dL (3.4-5.0); CALCIUM 7.7 mg/dL (8.5-10.1); CREATININE 0.8 mg/dL (0.6-1.3); POTASSIUM 4.6 mmol/L (3.5-5.1); TOTAL BILIRUBIN 0.9 mg/dL (<0.1-1.0)
[2021-08-17 04:25] LABS: CALCIUM 7.6 mg/dL (8.5-10.1); CREATININE 0.7 mg/dL (0.6-1.3); PHOSPHORUS* 3.3 mg/dL (2.5-4.9); POTASSIUM 4.6 mmol/L (3.5-5.1)
[2021-08-17 08:49] LABS: BE 0 mmol/L (-2 to +3); PCO2 36.4 mmHg (35.0-45.0); PO2 74.6 mmHg (75.0-100.0); pH 7.435 (7.340-7.450)
[2021-08-18] VITALS (94 sets, daily range): BP systolic 83–140; BP diastolic 50–86
[2021-08-18 04:49] LABS: ABSOLUTE LYMPHOCYTES 0.4 thou/uL (0.8-5.3); ABSOLUTE MONOCYTES 0.7 thou/uL (0.0-1.2); ABSOLUTE NEUTROPHILS 13.3 thou/uL (1.6-8.1); BASOPHILS 0.2 %; HEMATOCRIT 35.9 % (42.0-52.0); HEMOGLOBIN 12.2 gm/dL (14.0-18.0); LYMPHOCYTES 2.8 %; MCH 30.4 pg (26.0-34.0); MCV 89.5 fL (80.0-100.0); MONOCYTES 4.6 %; MPV 8.5 fl. (7.2-11.1); NUCLEATED RBCS 0 /100WBC; PLATELET COUNT* 143 thou/uL (150-400); POLYS 92.4 %; RBC 4.01 mil/uL (4.50-6.00); WBC 14.3 thou/uL (4.0-11.0)
[2021-08-18 05:12] LABS: ALBUMIN 2.5 g/dL (3.4-5.0); CALCIUM 7.7 mg/dL (8.5-10.1); CREATININE 0.7 mg/dL (0.6-1.3); POTASSIUM 5.1 mmol/L (3.5-5.1); TOTAL BILIRUBIN 0.7 mg/dL (<0.1-1.0); TOTAL PROTEIN 4.9 g/dL (6.4-8.2)
[2021-08-18 05:17] LABS: CALCIUM 7.7 mg/dL (8.5-10.1); CREATININE 0.7 mg/dL (0.6-1.3); PHOSPHORUS* 3.9 mg/dL (2.5-4.9); POTASSIUM 5.1 mmol/L (3.5-5.1)
[2021-08-18 09:22] LABS: BE 1.3 mmol/L (-2 to +3); PCO2 44.8 mmHg (35.0-45.0); PO2 73.6 mmHg (75.0-100.0); pH 7.392 (7.340-7.450)
[2021-08-19] VITALS (42 sets, daily range): BP systolic 84–119; BP diastolic 54–76
[2021-08-19 03:58] LABS: ABSOLUTE LYMPHOCYTES 0.4 thou/uL (0.8-5.3); ABSOLUTE MONOCYTES 0.7 thou/uL (0.0-1.2); BASOPHILS 0.2 %; HEMATOCRIT 36.9 % (42.0-52.0); HEMOGLOBIN 12.9 gm/dL (14.0-18.0); LYMPHOCYTES 2.6 %; MCH 30.9 pg (26.0-34.0); MCHC 34.9 g/dL (28.0-37.0); MCV 88.5 fL (80.0-100.0); MONOCYTES 4.8 %; MPV 7.8 fl. (7.2-11.1); NUCLEATED RBCS 0 /100WBC; PLATELET COUNT* 154 thou/uL (150-400); POLYS 92.4 %; RBC 4.17 mil/uL (4.50-6.00); RDW-CV 12.3 % (10.5-14.5); WBC 15.2 thou/uL (4.0-11.0)
[2021-08-19 04:18] LABS: ALBUMIN 3.2 g/dL (3.4-5.0); CALCIUM 8.1 mg/dL (8.5-10.1); CREATININE 0.7 mg/dL (0.6-1.3); MAGNESIUM 2.2 mg/dL (1.8-2.4); POTASSIUM 4.8 mmol/L (3.5-5.1); TOTAL PROTEIN 5.5 g/dL (6.4-8.2)
[2021-08-19 08:57] LABS: BE 6.9 mmol/L (-2 to +3); PCO2 44.9 mmHg (35.0-45.0); PO2 79.3 mmHg (75.0-100.0); pH 7.465 (7.340-7.450)
[2021-08-20] VITALS (38 sets, daily range): BP systolic 89–127; BP diastolic 38–77
[2021-08-20 11:26] LABS: HEMOGLOBIN 12.4 gm/dL (14.0-18.0); MCH 30.2 pg (26.0-34.0); MCHC 33.5 g/dL (28.0-37.0); MCV 90.1 fL (80.0-100.0); MPV 7.6 fl. (7.2-11.1); NUCLEATED RBCS 0 /100WBC; PLATELET COUNT* 144 thou/uL (150-400); RDW-CV 12.8 % (10.5-14.5); WBC 12.7 thou/uL (4.0-11.0)
[2021-08-20 11:39] LABS: ALBUMIN 3.4 g/dL (3.4-5.0); CALCIUM 8.5 mg/dL (8.5-10.1); CREATININE 0.6 mg/dL (0.6-1.3); POTASSIUM 4.6 mmol/L (3.5-5.1); TOTAL PROTEIN 5.5 g/dL (6.4-8.2)
[2021-08-20 12:19] LABS: ABSOLUTE LYMPHOCYTES 0.3 thou/uL (0.8-5.3); ABSOLUTE MONOCYTES 0.9 thou/uL (0.0-1.2); ABSOLUTE NEUTROPHILS 11.6 thou/uL (1.6-8.1); ANISOCYTOSIS 1+; PLATELET ESTIMATE DECREASED; POIKILOCYTOSIS 1+
[2021-08-20 12:40] LABS: BE 2.8 mmol/L (-2 to +3); PCO2 41.5 mmHg (35.0-45.0); pH 7.436 (7.340-7.450)
[2021-08-20 12:45] LABS: PO2 44.5 mmHg (75.0-100.0)
[2021-08-21] VITALS (39 sets, daily range): BP systolic 82–128; BP diastolic 30–92
[2021-08-21 06:28] LABS: ABSOLUTE LYMPHOCYTES 0.4 thou/uL (0.8-5.3); ABSOLUTE MONOCYTES 0.7 thou/uL (0.0-1.2); ABSOLUTE NEUTROPHILS 10.3 thou/uL (1.6-8.1); BASOPHILS 0.1 %; EOSINOPHILS 0.1 %; HEMATOCRIT 39.4 % (42.0-52.0); HEMOGLOBIN 13.1 gm/dL (14.0-18.0); LYMPHOCYTES 3.7 %; MCH 30.6 pg (26.0-34.0); MCHC 33.3 g/dL (28.0-37.0); MCV 91.8 fL (80.0-100.0); MONOCYTES 6.1 %; MPV 7.6 fl. (7.2-11.1); NUCLEATED RBCS 0 /100WBC; PLATELET COUNT* 166 thou/uL (150-400); RBC 4.29 mil/uL (4.50-6.00); RDW-CV 12.9 % (10.5-14.5); WBC 11.5 thou/uL (4.0-11.0)
[2021-08-21 06:58] LABS: ALBUMIN 3.4 g/dL (3.4-5.0); CALCIUM 8.5 mg/dL (8.5-10.1); CREATININE 0.5 mg/dL (0.6-1.3); MAGNESIUM 2.2 mg/dL (1.8-2.4); POTASSIUM 4.3 mmol/L (3.5-5.1); TOTAL BILIRUBIN 1.2 mg/dL (<0.1-1.0); TOTAL PROTEIN 5.7 g/dL (6.4-8.2)
[2021-08-21 07:19] LABS: PHOSPHORUS* 4.2 mg/dL (2.5-4.9)
[2021-08-22] VITALS (30 sets, daily range): BP systolic 85–112; BP diastolic 55–71
[2021-08-22 04:23] LABS: ABSOLUTE LYMPHOCYTES 0.4 thou/uL (0.8-5.3); ABSOLUTE MONOCYTES 0.6 thou/uL (0.0-1.2); ABSOLUTE NEUTROPHILS 10.6 thou/uL (1.6-8.1); BASOPHILS 0.4 %; EOSINOPHILS 0.3 %; HEMATOCRIT 40.7 % (42.0-52.0); HEMOGLOBIN 13.5 gm/dL (14.0-18.0); LYMPHOCYTES 3.3 %; MCH 30.5 pg (26.0-34.0); MCHC 33.3 g/dL (28.0-37.0); MCV 91.5 fL (80.0-100.0); MPV 7.3 fl. (7.2-11.1); NUCLEATED RBCS 0 /100WBC; PLATELET COUNT* 172 thou/uL (150-400); RBC 4.45 mil/uL (4.50-6.00); RDW-CV 13.5 % (10.5-14.5); WBC 11.6 thou/uL (4.0-11.0)
[2021-08-22 04:50] LABS: ALBUMIN 3.4 g/dL (3.4-5.0); CALCIUM 8.3 mg/dL (8.5-10.1); CREATININE 0.6 mg/dL (0.6-1.3); POTASSIUM 4.6 mmol/L (3.5-5.1); TOTAL BILIRUBIN 1.4 mg/dL (<0.1-1.0); TOTAL PROTEIN 5.9 g/dL (6.4-8.2)
[2021-08-23] VITALS (12 sets, daily range): BP systolic 84–125; BP diastolic 47–73
[2021-08-23 05:14] LABS: ABSOLUTE LYMPHOCYTES 0.3 thou/uL (0.8-5.3); ABSOLUTE MONOCYTES 0.5 thou/uL (0.0-1.2); ABSOLUTE NEUTROPHILS 8.2 thou/uL (1.6-8.1); BASOPHILS 0.2 %; EOSINOPHILS 0.4 %; HEMATOCRIT 40.4 % (42.0-52.0); HEMOGLOBIN 13.7 gm/dL (14.0-18.0); LYMPHOCYTES 3.7 %; MCV 91.1 fL (80.0-100.0); MONOCYTES 5.9 %; MPV 7.3 fl. (7.2-11.1); NUCLEATED RBCS 0 /100WBC; PLATELET COUNT* 169 thou/uL (150-400); POLYS 89.8 %; RBC 4.44 mil/uL (4.50-6.00); RDW-CV 13.4 % (10.5-14.5); WBC 9.2 thou/uL (4.0-11.0)
[2021-08-23 05:20] LABS: CALCIUM 8.3 mg/dL (8.5-10.1); CREATININE 0.5 mg/dL (0.6-1.3); POTASSIUM 4.3 mmol/L (3.5-5.1)
[2021-08-24] VITALS (15 sets, daily range): BP systolic 107–158; BP diastolic 48–92
[2021-08-24 05:59] LABS: HEMOGLOBIN 13.6 gm/dL (14.0-18.0); MCH 30.9 pg (26.0-34.0); MCV 90.7 fL (80.0-100.0); MPV 7.4 fl. (7.2-11.1); NUCLEATED RBCS 0 /100WBC; PLATELET COUNT* 183 thou/uL (150-400); RBC 4.41 mil/uL (4.50-6.00); RDW-CV 13.7 % (10.5-14.5); WBC 9.1 thou/uL (4.0-11.0)
[2021-08-24 06:14] LABS: ALBUMIN 3.2 g/dL (3.4-5.0); CALCIUM 8.3 mg/dL (8.5-10.1); CREATININE 0.5 mg/dL (0.6-1.3); POTASSIUM 4.4 mmol/L (3.5-5.1); TOTAL BILIRUBIN 1.3 mg/dL (<0.1-1.0); TOTAL PROTEIN 5.8 g/dL (6.4-8.2)
[2021-08-24 11:12] LABS: ABSOLUTE LYMPHOCYTES 0.5 thou/uL (0.8-5.3); ABSOLUTE MONOCYTES 0.4 thou/uL (0.0-1.2); ABSOLUTE NEUTROPHILS 8.2 thou/uL (1.6-8.1); ATYPICAL LYMPHS 3 %; PLATELET ESTIMATE ADEQUATE
[2021-08-25] VITALS (36 sets, daily range): BP systolic 112–147; BP diastolic 62–93
[2021-08-25 04:57] LABS: ABSOLUTE LYMPHOCYTES 0.5 thou/uL (0.8-5.3); ABSOLUTE MONOCYTES 0.7 thou/uL (0.0-1.2); ABSOLUTE NEUTROPHILS 9.3 thou/uL (1.6-8.1); BASOPHILS 0.3 %; EOSINOPHILS 0.2 %; HEMATOCRIT 41.1 % (42.0-52.0); HEMOGLOBIN 14.2 gm/dL (14.0-18.0); LYMPHOCYTES 5.1 %; MCHC 34.6 g/dL (28.0-37.0); MCV 89.8 fL (80.0-100.0); MONOCYTES 6.9 %; MPV 6.6 fl. (7.2-11.1); NUCLEATED RBCS 0 /100WBC; PLATELET COUNT* 183 thou/uL (150-400); POLYS 87.5 %; RBC 4.58 mil/uL (4.50-6.00); RDW-CV 13.5 % (10.5-14.5); WBC 10.7 thou/uL (4.0-11.0)
[2021-08-25 05:11] LABS: ALBUMIN 3.2 g/dL (3.4-5.0); CALCIUM 8.4 mg/dL (8.5-10.1); CREATININE 0.5 mg/dL (0.6-1.3); POTASSIUM 4.3 mmol/L (3.5-5.1); TOTAL BILIRUBIN 1.5 mg/dL (<0.1-1.0); TOTAL PROTEIN 6.2 g/dL (6.4-8.2)
[2021-08-26] VITALS (36 sets, daily range): BP systolic 102–152; BP diastolic 51–82
[2021-08-26 04:40] LABS: ABSOLUTE LYMPHOCYTES 0.2 thou/uL (0.8-5.3); ABSOLUTE MONOCYTES 0.5 thou/uL (0.0-1.2); BASOPHILS 0.1 %; HEMATOCRIT 41.5 % (42.0-52.0); HEMOGLOBIN 14.1 gm/dL (14.0-18.0); LYMPHOCYTES 2.7 %; MCH 30.8 pg (26.0-34.0); MCHC 33.9 g/dL (28.0-37.0); MCV 90.7 fL (80.0-100.0); MONOCYTES 5.4 %; MPV 7.5 fl. (7.2-11.1); NUCLEATED RBCS 0 /100WBC; PLATELET COUNT* 171 thou/uL (150-400); POLYS 91.8 %; RBC 4.58 mil/uL (4.50-6.00); RDW-CV 13.5 % (10.5-14.5); WBC 8.7 thou/uL (4.0-11.0)
[2021-08-26 05:05] LABS: ALBUMIN 3.3 g/dL (3.4-5.0); CALCIUM 8.5 mg/dL (8.5-10.1); CREATININE 0.6 mg/dL (0.6-1.3); POTASSIUM 4.3 mmol/L (3.5-5.1); TOTAL BILIRUBIN 1.3 mg/dL (<0.1-1.0); TOTAL PROTEIN 6.6 g/dL (6.4-8.2)
[2021-08-27] VITALS (26 sets, daily range): BP systolic 100–189; BP diastolic 54–89
[2021-08-27 04:59] LABS: HEMATOCRIT 40.4 % (42.0-52.0); HEMOGLOBIN 13.8 gm/dL (14.0-18.0); MCH 30.9 pg (26.0-34.0); MCHC 34.3 g/dL (28.0-37.0); MCV 90.3 fL (80.0-100.0); MPV 7.3 fl. (7.2-11.1); NUCLEATED RBCS 0 /100WBC; PLATELET COUNT* 181 thou/uL (150-400); RBC 4.47 mil/uL (4.50-6.00); RDW-CV 13.7 % (10.5-14.5); WBC 8.8 thou/uL (4.0-11.0)
[2021-08-27 05:16] LABS: CALCIUM 8.7 mg/dL (8.5-10.1); CREATININE 0.5 mg/dL (0.6-1.3); POTASSIUM 4.3 mmol/L (3.5-5.1)
[2021-08-27 06:12] LABS: ABSOLUTE LYMPHOCYTES 0.4 thou/uL (0.8-5.3); ABSOLUTE MONOCYTES 0.4 thou/uL (0.0-1.2)
[2021-08-27 06:14] LABS: PLATELET ESTIMATE ADEQUATE
[2021-08-28] VITALS (28 sets, daily range): BP systolic 105–161; BP diastolic 48–95
[2021-08-28 15:00] LABS: BE 3.5 mmol/L (-2 to +3); PCO2 34.8 mmHg (35.0-45.0); PO2 73.1 mmHg (75.0-100.0); pH 7.498 (7.340-7.450)
[2021-08-28 15:08] LABS: URINE BILIRUBIN NEGATIVE (Negative); URINE BLOOD 2+ (Negative); URINE COLOR YELLOW; URINE GLUCOSE-RANDOM 1+ (Negative); URINE KETONES NEGATIVE (Negative); URINE LEUKOCYTES-REFLEX NEGATIVE (Negative); URINE PROTEIN TRACE (Negative); URINE SPECIFIC GRAVITY 1.025 (1.005-1.030)
[2021-08-28 15:09] LABS: ABSOLUTE LYMPHOCYTES 0.3 thou/uL (0.8-5.3); ABSOLUTE MONOCYTES 0.5 thou/uL (0.0-1.2); ABSOLUTE NEUTROPHILS 8.8 thou/uL (1.6-8.1); BASOPHILS 0.1 %; HEMATOCRIT 40.9 % (42.0-52.0); HEMOGLOBIN 14.1 gm/dL (14.0-18.0); LYMPHOCYTES 2.9 %; MCHC 34.4 g/dL (28.0-37.0); MCV 90.2 fL (80.0-100.0); MPV 7.3 fl. (7.2-11.1); NUCLEATED RBCS 0 /100WBC; PLATELET COUNT* 173 thou/uL (150-400); RBC 4.54 mil/uL (4.50-6.00); RDW-CV 13.5 % (10.5-14.5); WBC 9.5 thou/uL (4.0-11.0)
[2021-08-28 15:09] LABS: URINE CLARITY HAZY; URINE NITRITE-REFLEX POSITIVE (Negative)
[2021-08-28 15:11] LABS: BACTERIA-REFLEX >30 Many /HPF (None Seen); CASTS None Seen /LPF (None Seen); CRYSTALS None Seen /LPF (None Seen); SQUAMOUS 0-3 Few /LPF (0-3); URINE RBC >20 Many /HPF (0-2); URINE WBC-REFLEX 0-5 Rare /HPF (0-5)
[2021-08-28 15:20] LABS: CALCIUM 8.9 mg/dL (8.5-10.1); CREATININE 0.5 mg/dL (0.6-1.3); POTASSIUM 4.1 mmol/L (3.5-5.1)
[2021-08-28 15:24] LABS: ALBUMIN 3.1 g/dL (3.4-5.0); TOTAL BILIRUBIN 0.6 mg/dL (<0.1-1.0); TOTAL PROTEIN 6.6 g/dL (6.4-8.2)
[2021-08-29] VITALS (36 sets, daily range): BP systolic 99–143; BP diastolic 53–95
[2021-08-29 06:38] LABS: ABSOLUTE LYMPHOCYTES 0.4 thou/uL (0.8-5.3); ABSOLUTE MONOCYTES 0.6 thou/uL (0.0-1.2); ABSOLUTE NEUTROPHILS 7.2 thou/uL (1.6-8.1); BASOPHILS 0.2 %; EOSINOPHILS 0.4 %; HEMATOCRIT 39.7 % (42.0-52.0); HEMOGLOBIN 13.5 gm/dL (14.0-18.0); MCH 30.7 pg (26.0-34.0); MCHC 34.1 g/dL (28.0-37.0); MCV 90.1 fL (80.0-100.0); MONOCYTES 6.8 %; MPV 6.9 fl. (7.2-11.1); NUCLEATED RBCS 0 /100WBC; PLATELET COUNT* 147 thou/uL (150-400); POLYS 87.6 %; RDW-CV 13.1 % (10.5-14.5); WBC 8.2 thou/uL (4.0-11.0)
[2021-08-29 06:58] LABS: ALBUMIN 2.8 g/dL (3.4-5.0); CALCIUM 8.5 mg/dL (8.5-10.1); CREATININE 0.5 mg/dL (0.6-1.3); MAGNESIUM 1.8 mg/dL (1.8-2.4); PHOSPHORUS* 2.8 mg/dL (2.5-4.9); POTASSIUM 4.1 mmol/L (3.5-5.1); TOTAL BILIRUBIN 0.7 mg/dL (<0.1-1.0); TOTAL PROTEIN 6.4 g/dL (6.4-8.2)
[2021-08-30] VITALS (59 sets, daily range): BP systolic 83–158; BP diastolic 53–108
[2021-08-30 04:52] LABS: ABSOLUTE EOSINOPHILS 0.1 thou/uL (0.0-0.7); ABSOLUTE LYMPHOCYTES 0.6 thou/uL (0.8-5.3); ABSOLUTE MONOCYTES 0.4 thou/uL (0.0-1.2); ABSOLUTE NEUTROPHILS 5.9 thou/uL (1.6-8.1); BASOPHILS 0.1 %; EOSINOPHILS 1.2 %; HEMOGLOBIN 11.8 gm/dL (14.0-18.0); LYMPHOCYTES 8.4 %; MCH 31.4 pg (26.0-34.0); MCHC 34.6 g/dL (28.0-37.0); MCV 90.7 fL (80.0-100.0); MONOCYTES 5.3 %; MPV 7.2 fl. (7.2-11.1); NUCLEATED RBCS 0 /100WBC; PLATELET COUNT* 135 thou/uL (150-400); RBC 3.75 mil/uL (4.50-6.00); RDW-CV 13.6 % (10.5-14.5); WBC 6.9 thou/uL (4.0-11.0)
[2021-08-30 05:01] LABS: ALBUMIN 2.8 g/dL (3.4-5.0); CALCIUM 8.7 mg/dL (8.5-10.1); CREATININE 0.5 mg/dL (0.6-1.3); POTASSIUM 3.8 mmol/L (3.5-5.1); TOTAL BILIRUBIN 0.6 mg/dL (<0.1-1.0)
[2021-08-30 05:04] LABS: MAGNESIUM 2.2 mg/dL (1.8-2.4); PHOSPHORUS* 3.9 mg/dL (2.5-4.9)
--- NOTE | 2021-08-30 11:31 | EKG ---
[place] [address] ELECTROCARDIOGRAM REPORT Name: JULIA MITCHELL Room: [address] ADM IN M.R.#: [id number] Admission: 08/05/21 Attend Phys: Gerard Fitzgerald Discharge: Date of : 68 Date of Service: 08/29/21 1459 Report #: [id number] THIS REPORT FOR: //name// [facility] Test Date: 2021-08-29 Test Time: 14:59:10 Pat Name: JULIA MITCHELL Department: Room: [address] Gender: M Ring Sorter: GRZEGORZ : 1970 Requested By: Kaitlin Bhardwaj Order Number: [id number] Bertha MD: Juan Francisco Soto Measurements Intervals [place] Rate: 88 P: 50 CA: QRS: 44 QRSD: 94 T: 208 QT: 362 QTc: 438 Interpretive Statements sinus rhythm Nonspecific T abnormalities, diffuse leads Baseline wander in lead(s) V1 Compared to ECG 08/05/2021 08:38:08 Sinus tachycardia no longer present T-wave abnormality still present Electronically Signed On 08-30-2021 11:31:35 CDT by Juan Francisco Soto [email or web address] <ELECTRONICALLY SIGNED> By: Juan Francisco Soto MD, FACC 08/30/21 1131 1459 1459 Juan Francisco Soto MD, FACC /EPI
[2021-08-31] VITALS (33 sets, daily range): BP systolic 96–142; BP diastolic 60–110
[2021-08-31 04:56] LABS: HEMATOCRIT 35.4 % (42.0-52.0); HEMOGLOBIN 12.3 gm/dL (14.0-18.0); MCH 31.2 pg (26.0-34.0); MCHC 34.6 g/dL (28.0-37.0); NUCLEATED RBCS 0 /100WBC; PLATELET COUNT* 160 thou/uL (150-400); RBC 3.94 mil/uL (4.50-6.00); RDW-CV 13.9 % (10.5-14.5); WBC 7.9 thou/uL (4.0-11.0)
[2021-08-31 05:00] LABS: ALBUMIN 3.3 g/dL (3.4-5.0); CREATININE 0.5 mg/dL (0.6-1.3); MAGNESIUM 2.1 mg/dL (1.8-2.4); POTASSIUM 4.5 mmol/L (3.5-5.1); TOTAL BILIRUBIN 0.7 mg/dL (<0.1-1.0); TOTAL PROTEIN 6.9 g/dL (6.4-8.2)
[2021-08-31 06:15] LABS: ABSOLUTE LYMPHOCYTES 0.2 thou/uL (0.8-5.3); ABSOLUTE MONOCYTES 0.5 thou/uL (0.0-1.2); ABSOLUTE NEUTROPHILS 7.3 thou/uL (1.6-8.1); ANISOCYTOSIS 1+; PLATELET ESTIMATE ADEQUATE; POIKILOCYTOSIS 1+
[2021-09-01] VITALS (22 sets, daily range): BP systolic 106–137; BP diastolic 45–87
[2021-09-01 04:35] LABS: ABSOLUTE BASOPHILS 0.1 thou/uL (0.0-0.2); ABSOLUTE LYMPHOCYTES 0.6 thou/uL (0.8-5.3); ABSOLUTE MONOCYTES 0.6 thou/uL (0.0-1.2); ABSOLUTE NEUTROPHILS 6.7 thou/uL (1.6-8.1); BASOPHILS 0.8 %; EOSINOPHILS 0.2 %; HEMATOCRIT 38.2 % (42.0-52.0); HEMOGLOBIN 13.1 gm/dL (14.0-18.0); LYMPHOCYTES 7.7 %; MCH 30.7 pg (26.0-34.0); MCHC 34.2 g/dL (28.0-37.0); MCV 89.8 fL (80.0-100.0); MONOCYTES 7.7 %; MPV 7.2 fl. (7.2-11.1); NUCLEATED RBCS 0 /100WBC; PLATELET COUNT* 186 thou/uL (150-400); POLYS 83.6 %; RBC 4.25 mil/uL (4.50-6.00); RDW-CV 13.9 % (10.5-14.5)
[2021-09-01 04:57] LABS: CALCIUM 9.8 mg/dL (8.5-10.1); CREATININE 0.6 mg/dL (0.6-1.3); MAGNESIUM 2.1 mg/dL (1.8-2.4); TOTAL BILIRUBIN 0.8 mg/dL (<0.1-1.0); TOTAL PROTEIN 7.6 g/dL (6.4-8.2)
[2021-09-02] VITALS (27 sets, daily range): BP systolic 71–193; BP diastolic 38–124
[2021-09-02 05:51] LABS: ABSOLUTE LYMPHOCYTES 0.9 thou/uL (0.8-5.3); ABSOLUTE MONOCYTES 0.7 thou/uL (0.0-1.2); ABSOLUTE NEUTROPHILS 6.8 thou/uL (1.6-8.1); BASOPHILS 0.3 %; EOSINOPHILS 0.4 %; HEMATOCRIT 41.8 % (42.0-52.0); HEMOGLOBIN 14.2 gm/dL (14.0-18.0); LYMPHOCYTES 10.1 %; MCH 30.7 pg (26.0-34.0); MCV 90.3 fL (80.0-100.0); MONOCYTES 8.6 %; MPV 7.2 fl. (7.2-11.1); NUCLEATED RBCS 0 /100WBC; PLATELET COUNT* 208 thou/uL (150-400); POLYS 80.6 %; RBC 4.63 mil/uL (4.50-6.00); RDW-CV 14.1 % (10.5-14.5); WBC 8.5 thou/uL (4.0-11.0)
[2021-09-02 05:59] LABS: ALBUMIN 3.8 g/dL (3.4-5.0); CALCIUM 9.3 mg/dL (8.5-10.1); CREATININE 0.6 mg/dL (0.6-1.3); MAGNESIUM 2.1 mg/dL (1.8-2.4); TOTAL BILIRUBIN 0.8 mg/dL (<0.1-1.0); TOTAL PROTEIN 7.6 g/dL (6.4-8.2)
--- NOTE | 2021-09-02 09:53 | EKG ---
[place] [address] ELECTROCARDIOGRAM REPORT Name: STEPHENJULIA T Room: [address] ADM IN M.R.#: [id number] Admission: 08/05/21 Attend Phys: Gerard Fitzgerald Discharge: Date of : 68 Date of Service: 09/01/21 1626 Report #: [id number] THIS REPORT FOR: //name// [facility] Test Date: 2021-09-01 Test Time: 16:26:22 Pat Name: JULIA MITCHELL Department: Room: [address] Gender: M Blasting Entry Specialist: JOSEMANUEL : 1970 Requested By: Ghanshyam Latif Order Number: [id number] Reading MD: Juan Francisco Soto Measurements Intervals [place] Rate: 83 P: 32 PA: 149 QRS: 39 QRSD: 80 T: QT: 498 QTc: 586 Interpretive Statements Sinus rhythm Probable left atrial enlargement Abnormal R-wave progression, early transition Borderline repolarization abnormality Prolonged QT interval Baseline wander in lead(s) II,III,aVF Compared to ECG 08/29/2021 14:59:10 T-wave abnormality no longer present Electronically Signed On 09-02-2021 9:53:03 CDT by Juan Francisco Soto [email or web address] <ELECTRONICALLY SIGNED> By: Juan Francisco Soto MD, [facility] 09/02/21 0953 1626 1626 Juan Francisco Soto MD, [facility] /EPI
--- NOTE | 2021-09-02 19:03 | 2DMMODE ---
[place] [address] 2 D/M-MODE ECHOCARDIOGRAM Name: JULIA MITCHELL Room: [address] ADM IN [place].#: [id number] Admission: 08/05/21 Attend Phys: Gerard Fitzgerald Discharge: Date of : 68 Date of Service: 09/02/21 190 Report #: [id number] THIS REPORT FOR: cc: FAM - No family physician/PCP FAM - No family physician/PCP Juan Francisco Soto MD [facility] ~ APPROVED REPORT Study performed: 09/02/2021 14:47:03 EXAM: Limited 2D Echocardiogram and color doppler Patient Location: In-Patient Room #: 003 Status: routine BSA: 2.06 HR: 103 bpm BP: 131/78 mmHg Rhythm: NSR Other Information Study Quality: Good Indications re assess PA systolic Left Ventricle The left ventricle is normal size. There is normal LV segmental wall motion. There is normal left ventricular wall thickness. The left ventricular systolic function is normal. The left ventricular ejection fraction is within the normal range. LVEF is 60-65%. Right Ventricle The right ventricle is normal size. The right ventricular systolic function is normal. Atria The left atrium size is normal. The right atrium size is normal. Aortic Valve The aortic valve is normal in structure. Mitral Valve The mitral [place] [address] 2 D/M-MODE ECHOCARDIOGRAM Name: JULIA MITCHELL Room: [address] IN M.R.#: [id number] Admission: 08/05/21 Attend Phys: Gerard Fitzgerald Discharge: Date of : 68 Date of Service: 09/02/211901 Report #: [id number] Tricuspid Valve The tricuspid valve is normal in structure. Unable to assess PA pressure. Trace tricuspid regurgitation. Pulmonic Valve The pulmonary valve is normal in structure. Great Vessels The aortic root is normal in size. IVC is normal in size and collapses >50% with inspiration. Pericardium There is no pericardial effusion. <Conclusion> The left ventricular systolic function is normal. The left ventricular ejection fraction is within the normal range. There is no pericardial effusion. <ELECTRONICALLY SIGNED> By: Juan Francisco Soto MD, FACC 09/02/211901 01 01 Juan Francisco Soto MD, FACC /INF
[2021-09-03] VITALS (24 sets, daily range): BP systolic 103–139; BP diastolic 65–83
[2021-09-03 04:25] LABS: HEMATOCRIT 39.3 % (42.0-52.0); HEMOGLOBIN 13.3 gm/dL (14.0-18.0); MCH 30.8 pg (26.0-34.0); MCV 90.6 fL (80.0-100.0); MPV 7.2 fl. (7.2-11.1); RBC 4.33 mil/uL (4.50-6.00); RDW-CV 13.7 % (10.5-14.5); WBC 10.5 thou/uL (4.0-11.0)
[2021-09-03 04:41] LABS: CREATININE 0.5 mg/dL (0.6-1.3); POTASSIUM 4.6 mmol/L (3.5-5.1)
[2021-09-04] VITALS (24 sets, daily range): BP systolic 86–142; BP diastolic 49–97
[2021-09-04 06:26] LABS: HEMATOCRIT 37.4 % (42.0-52.0); HEMOGLOBIN 12.7 gm/dL (14.0-18.0); MCH 30.8 pg (26.0-34.0); MCHC 33.9 g/dL (28.0-37.0); MCV 90.8 fL (80.0-100.0); MPV 7.6 fl. (7.2-11.1); RBC 4.13 mil/uL (4.50-6.00); RDW-CV 13.7 % (10.5-14.5); WBC 8.6 thou/uL (4.0-11.0)
[2021-09-04 06:34] LABS: CALCIUM 8.8 mg/dL (8.5-10.1); CREATININE 0.6 mg/dL (0.6-1.3); POTASSIUM 4.3 mmol/L (3.5-5.1)
[2021-09-05] VITALS (21 sets, daily range): BP systolic 87–189; BP diastolic 46–86
[2021-09-05 06:43] LABS: HEMATOCRIT 35.6 % (42.0-52.0); MCH 30.6 pg (26.0-34.0); MCHC 33.6 g/dL (28.0-37.0); MCV 91.1 fL (80.0-100.0); MPV 7.9 fl. (7.2-11.1); RBC 3.9 mil/uL (4.50-6.00); RDW-CV 13.8 % (10.5-14.5); WBC 7.7 thou/uL (4.0-11.0)
[2021-09-05 06:50] LABS: CALCIUM 8.6 mg/dL (8.5-10.1); CREATININE 0.5 mg/dL (0.6-1.3); POTASSIUM 4.1 mmol/L (3.5-5.1)
[2021-09-05 12:25] LABS: ALBUMIN 2.6 g/dL (3.4-5.0); DIRECT BILIRUBIN 0.1 mg/dL (<0.1-0.3); TOTAL BILIRUBIN 0.4 mg/dL (<0.1-1.0); TOTAL PROTEIN 5.8 g/dL (6.4-8.2)
[2021-09-06] VITALS (24 sets, daily range): BP systolic 73–142; BP diastolic 50–93
[2021-09-06 05:49] LABS: HEMATOCRIT 35.6 % (42.0-52.0); MCHC 33.6 g/dL (28.0-37.0); MCV 92.1 fL (80.0-100.0); MPV 7.4 fl. (7.2-11.1); NUCLEATED RBCS 0 /100WBC; PLATELET COUNT* 211 thou/uL (150-400); RBC 3.86 mil/uL (4.50-6.00); WBC 7.5 thou/uL (4.0-11.0)
[2021-09-06 06:03] LABS: CALCIUM 8.6 mg/dL (8.5-10.1); CREATININE 0.4 mg/dL (0.6-1.3); MAGNESIUM 2.6 mg/dL (1.8-2.4); POTASSIUM 4.2 mmol/L (3.5-5.1)
[2021-09-06 06:46] LABS: ABSOLUTE EOSINOPHILS 0.3 thou/uL (0.0-0.7); ABSOLUTE LYMPHOCYTES 1.4 thou/uL (0.8-5.3); ABSOLUTE MONOCYTES 0.5 thou/uL (0.0-1.2); ABSOLUTE NEUTROPHILS 5.3 thou/uL (1.6-8.1); ATYPICAL LYMPHS 1 %; METAMYELOCYTES 2 %; PLATELET ESTIMATE ADEQUATE
[2021-09-07] VITALS (9 sets, daily range): BP systolic 124–150; BP diastolic 71–96
[2021-09-07 03:17] LABS: ABSOLUTE BASOPHILS 0.1 thou/uL (0.0-0.2); ABSOLUTE EOSINOPHILS 0.2 thou/uL (0.0-0.7); ABSOLUTE LYMPHOCYTES 1.6 thou/uL (0.8-5.3); ABSOLUTE NEUTROPHILS 11.2 thou/uL (1.6-8.1); BASOPHILS 0.4 %; EOSINOPHILS 1.3 %; HEMATOCRIT 40.8 % (42.0-52.0); HEMOGLOBIN 13.7 gm/dL (14.0-18.0); LYMPHOCYTES 11.4 %; MCH 30.4 pg (26.0-34.0); MCHC 33.6 g/dL (28.0-37.0); MCV 90.5 fL (80.0-100.0); MONOCYTES 7.3 %; MPV 7.2 fl. (7.2-11.1); NUCLEATED RBCS 0 /100WBC; POLYS 79.6 %; RBC 4.51 mil/uL (4.50-6.00); RDW-CV 14.4 % (10.5-14.5); WBC 14.1 thou/uL (4.0-11.0)
[2021-09-07 03:47] LABS: PLATELET COUNT* 358 thou/uL (150-400)
[2021-09-07 03:56] LABS: ALBUMIN 3.2 g/dL (3.4-5.0); CALCIUM 9.1 mg/dL (8.5-10.1); CREATININE 0.6 mg/dL (0.6-1.3); MAGNESIUM 2.4 mg/dL (1.8-2.4); TOTAL BILIRUBIN 0.8 mg/dL (<0.1-1.0); TOTAL PROTEIN 6.9 g/dL (6.4-8.2)
[2021-09-08] VITALS (12 sets, daily range): BP systolic 97–140; BP diastolic 64–97
[2021-09-08 06:36] LABS: HEMATOCRIT 41.2 % (42.0-52.0); HEMOGLOBIN 13.9 gm/dL (14.0-18.0); MCH 30.7 pg (26.0-34.0); MCHC 33.8 g/dL (28.0-37.0); MCV 90.8 fL (80.0-100.0); MPV 7.4 fl. (7.2-11.1); RBC 4.54 mil/uL (4.50-6.00); RDW-CV 14.2 % (10.5-14.5); WBC 15.4 thou/uL (4.0-11.0)
[2021-09-08 06:47] LABS: CALCIUM 9.3 mg/dL (8.5-10.1); CREATININE 0.5 mg/dL (0.6-1.3); POTASSIUM 3.5 mmol/L (3.5-5.1)
--- NOTE | 2021-09-08 14:20 | EKG ---
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: FLETCHER : 1970 Requested By: Brianna Bhardwaj Order Number: [id number] Bertha MD: Juan Francisco Soto Measurements Intervals [place] Rate: 118 P: 48 CT: 141 QRS: 43 QRSD: 83 T: -88 QT: 294 QTc: 412 Interpretive Statements Sinus tachycardia Nonspecific repol abnormality, diffuse leads Compared to ECG 09/01/2021 16:26:22 Sinus rhythm no longer present Prolonged QT interval no longer present Electronically Signed On 09-08-2021 14:20:43 CDT by Juan Francisco Soto [email or web address] <ELECTRONICALLY SIGNED> By: Juan Francisco Soto MD, [facility] 09/08/21 1420 1553 1553 Juan Francisco Soto MD, [facility] /EPI
[2021-09-08 18:10] LABS: BE 2.9 mmol/L (-2 to +3); PCO2 VENOUS 49.7 mmHg (41.0-51.0); PO2 VENOUS 49.9 mmHg (35.0-45.0)
[2021-09-08 18:21] LABS: CALCIUM 8.8 mg/dL (8.5-10.1); CREATININE 0.6 mg/dL (0.6-1.3)
[2021-09-09] VITALS (27 sets, daily range): BP systolic 85–138; BP diastolic 36–87
[2021-09-09 05:15] LABS: ABSOLUTE EOSINOPHILS 0.1 thou/uL (0.0-0.7); ABSOLUTE LYMPHOCYTES 0.7 thou/uL (0.8-5.3); ABSOLUTE MONOCYTES 0.8 thou/uL (0.0-1.2); BASOPHILS 0.3 %; EOSINOPHILS 0.5 %; HEMATOCRIT 38.9 % (42.0-52.0); LYMPHOCYTES 5.2 %; MCH 30.4 pg (26.0-34.0); MCHC 33.4 g/dL (28.0-37.0); MONOCYTES 6.1 %; MPV 7.2 fl. (7.2-11.1); NUCLEATED RBCS 0 /100WBC; PLATELET COUNT* 278 thou/uL (150-400); POLYS 87.9 %; RBC 4.27 mil/uL (4.50-6.00); RDW-CV 14.4 % (10.5-14.5); WBC 13.7 thou/uL (4.0-11.0)
[2021-09-09 05:34] LABS: ALBUMIN 2.9 g/dL (3.4-5.0); CALCIUM 8.8 mg/dL (8.5-10.1); CREATININE 0.5 mg/dL (0.6-1.3); MAGNESIUM 2.2 mg/dL (1.8-2.4); POTASSIUM 4.1 mmol/L (3.5-5.1); TOTAL BILIRUBIN 0.8 mg/dL (<0.1-1.0); TOTAL PROTEIN 6.7 g/dL (6.4-8.2)
[2021-09-09 15:47] LABS: CALCIUM 9.2 mg/dL (8.5-10.1); CREATININE 0.6 mg/dL (0.6-1.3); POTASSIUM 4.7 mmol/L (3.5-5.1)
[2021-09-09 23:33] LABS: ANTI-Xa-UNFRACTIONATED HEP 7.352; BE 1.2 mmol/L (-2 to +3); pH 7.349 (7.340-7.450)
[2021-09-09 23:48] LABS: PCO2 51.4 mmHg (35.0-45.0); PO2 38.6 mmHg (75.0-100.0)
[2021-09-10] VITALS (88 sets, daily range): BP systolic 87–142; BP diastolic 25–94
[2021-09-10 04:44] LABS: ALBUMIN 3.1 g/dL (3.4-5.0); CALCIUM 8.8 mg/dL (8.5-10.1); CREATININE 0.6 mg/dL (0.6-1.3); MAGNESIUM 2.2 mg/dL (1.8-2.4); POTASSIUM 4.6 mmol/L (3.5-5.1); TOTAL BILIRUBIN 0.7 mg/dL (<0.1-1.0); TOTAL PROTEIN 6.7 g/dL (6.4-8.2)
[2021-09-10 04:53] LABS: HEMATOCRIT 35.9 % (42.0-52.0); MCH 30.6 pg (26.0-34.0); MCHC 33.5 g/dL (28.0-37.0); MCV 91.6 fL (80.0-100.0); MPV 7.6 fl. (7.2-11.1); NUCLEATED RBCS 0 /100WBC; PLATELET COUNT* 254 thou/uL (150-400); RBC 3.92 mil/uL (4.50-6.00); RDW-CV 14.3 % (10.5-14.5); WBC 10.3 thou/uL (4.0-11.0)
[2021-09-10 05:31] LABS: BE -0.2 mmol/L (-2 to +3)
[2021-09-10 05:34] LABS: PCO2 59.6 mmHg (35.0-45.0); PO2 51.4 mmHg (75.0-100.0); pH 7.285 (7.340-7.450)
[2021-09-10 06:52] LABS: ABSOLUTE LYMPHOCYTES 0.3 thou/uL (0.8-5.3)
[2021-09-10 06:53] LABS: PLATELET ESTIMATE ADEQUATE
[2021-09-10 09:38] LABS: BE -3.2 mmol/L (-2 to +3); PO2 85.5 mmHg (75.0-100.0)
[2021-09-10 09:41] LABS: PCO2 96.2 mmHg (35.0-45.0)
[2021-09-10 12:40] LABS: BE -3.3 mmol/L (-2 to +3); PO2 85.2 mmHg (75.0-100.0)
[2021-09-10 12:42] LABS: pH 7.156 (7.340-7.450)
[2021-09-10 14:51] LABS: BE 1.1 mmol/L (-2 to +3); PCO2 44.3 mmHg (35.0-45.0); pH 7.392 (7.340-7.450)
[2021-09-10 14:54] LABS: PO2 131.3 mmHg (75.0-100.0)
[2021-09-10 18:49] LABS: HEMATOCRIT 36.3 % (42.0-52.0); HEMOGLOBIN 12.1 gm/dL (14.0-18.0); MCH 30.2 pg (26.0-34.0); MCHC 33.2 g/dL (28.0-37.0); MCV 90.8 fL (80.0-100.0); MPV 7.2 fl. (7.2-11.1); RDW-CV 14.5 % (10.5-14.5); WBC 15.4 thou/uL (4.0-11.0)
[2021-09-10 19:26] LABS: CREATININE 0.7 mg/dL (0.6-1.3); MAGNESIUM 2.4 mg/dL (1.8-2.4); POTASSIUM 4.4 mmol/L (3.5-5.1); TOTAL BILIRUBIN 0.8 mg/dL (<0.1-1.0); TOTAL PROTEIN 6.9 g/dL (6.4-8.2)
[2021-09-11] VITALS (12 sets, daily range): BP systolic 99–118; BP diastolic 62–74
[2021-09-11 05:10] LABS: ALBUMIN 2.8 g/dL (3.4-5.0); CALCIUM 8.9 mg/dL (8.5-10.1); CREATININE 0.8 mg/dL (0.6-1.3); POTASSIUM 5.1 mmol/L (3.5-5.1); TOTAL BILIRUBIN 0.5 mg/dL (<0.1-1.0); TOTAL PROTEIN 6.6 g/dL (6.4-8.2)
[2021-09-11 05:48] LABS: ABSOLUTE LYMPHOCYTES 0.5 thou/uL (0.8-5.3); ABSOLUTE MONOCYTES 0.5 thou/uL (0.0-1.2); ABSOLUTE NEUTROPHILS 13.9 thou/uL (1.6-8.1); BASOPHILS 0.2 %; HEMATOCRIT 34.6 % (42.0-52.0); HEMOGLOBIN 11.4 gm/dL (14.0-18.0); LYMPHOCYTES 3.1 %; MCH 30.1 pg (26.0-34.0); MCHC 32.9 g/dL (28.0-37.0); MCV 91.7 fL (80.0-100.0); MONOCYTES 3.5 %; MPV 7.4 fl. (7.2-11.1); NUCLEATED RBCS 0 /100WBC; PLATELET COUNT* 391 thou/uL (150-400); POLYS 93.2 %; RBC 3.77 mil/uL (4.50-6.00); RDW-CV 14.7 % (10.5-14.5); WBC 14.9 thou/uL (4.0-11.0)
[2021-09-11 08:56] LABS: BE 0.8 mmol/L (-2 to +3); PCO2 48.3 mmHg (35.0-45.0); PO2 72.5 mmHg (75.0-100.0); pH 7.362 (7.340-7.450)
--- NOTE | 2021-09-11 10:11 | CON ---
[address] [address] CONSULTATION Name: JULIA MITCHELL Room: [address] IN M.R.#: [id number] Admission: 08/05/21 Attend Phys: Rita Up Discharge: Date of : 68 Report #: [id number] THIS REPORT FOR: cc: FAM - No family physician/PCP FAM - No family physician/PCP Surinder Montanez MD [facility] ~ DATE OF CONSULTATION: 09/11/2021 CARDIOLOGY CONSULTATION HISTORY OF PRESENT ILLNESS: I was asked by Dr. Fitzgerald to see this 51-year-old white male in cardiology consultation for evaluation and treatment of 2 episodes of PSVT. I actually found a third episode in the chart from 08/29. This man was hospitalized over a month ago for COVID-19. He has acute respiratory failure. He is intubated and sedated on the ventilator and unresponsive. He cannot give a history. He has a past medical history of diabetes and high blood pressure. He has acute respiratory failure, hypoxemic type and he has diffuse pulmonary infiltrates. Yesterday evening, they called me about an episode of PSVT that was terminated with 5 mg of IV metoprolol that he had ordered to be taking q.4 hours p.r.n. He had a brief episode prior to that and subsequently has had a brief episode as well, lasting just a few seconds. As I said, I found a previous similar event from 08/29. He is unable to give a history and the remainder of past medical history is unobtainable. SOCIAL HISTORY: Unobtainable. REVIEW OF SYSTEMS: Unobtainable. His chest x-ray today shows diffuse bilateral pulmonary infiltrates. LABORATORY DATA: His EKG from admission shows sinus tachycardia with borderline T-wave abnormalities in the inferior leads. I have found other EKGs that do show more significant ST-T abnormalities. As far as we know, he has no prior history of heart disease. PHYSICAL EXAMINATION: VITAL SIGNS: His pulse is 120, respirations 29, blood pressure is 94/63, O2 sats 92%. His temperature is 36.8 degrees. HEENT: Head atraumatic. Eyes: Clear. NECK: Supple. There is no jugular venous distention or hepatojugular reflux. Thyroid is not enlarged. There is no adenopathy. SKIN: Warm and dry. Mucous membranes are moist. LUNGS: Reveal decreased breath sounds bilaterally with coarse breath sounds. HEART: Revealed somewhat distant heart tones. He is tachycardic. I hear no murmurs, rubs, thrills, heaves or gallops. [place] [address] CONSULTATION Name: JULIA MITCHELL Amanda Room: [address] IN [facility].#: [id number] Admission: 08/05/21 Attend Phys: Rita Up Discharge: Date of : 68 Report #: [id number] ABDOMEN: Soft, flat, nontender, no palpable masses, no organomegaly. EXTREMITIES: Revealed no cyanosis, clubbing or edema. The patient was unresponsive.. IMPRESSION: 1. PSVT. 2. COVID-19. 3. Acute respiratory failure, hypoxemic. 4. Diabetes mellitus. 5. Essential hypertension. 6. Pulmonary infiltrates. 7. Hypotension requiring pressors. I note he is on Osman-Synephrine currently. He may well be septic. RECOMMENDATION: Continue the current therapy. If he has another episode of PSVT, I will give him metoprolol acutely if his blood pressure would support it. If this trend persists, then I would digitalize this man as digitalis will not lower his blood pressure. He is not a candidate for IV Cardizem or substantial amounts of IV metoprolol. I would not give him a true antiarrhythmic at this point. I suspect to be managed with digoxin. Additionally, he is to get an echocardiogram tomorrow and will check a BNP to be sure he does not have an element of heart failure here; however, I suspect his pulmonary infiltrates are infectious in origin. Thank you very much for asking me to see the patient. If there are any questions, please feel free to contact me. <ELECTRONICALLY SIGNED> By: Surinder Montanez MD, FACC 09/11/21 1011 0750 0834F. Mateus Montanez MD, FACC /nt
[2021-09-12] VITALS (44 sets, daily range): BP systolic -4–186; BP diastolic -23–175
[2021-09-12 03:50] LABS: ABSOLUTE LYMPHOCYTES 0.6 thou/uL (0.8-5.3); ABSOLUTE MONOCYTES 0.8 thou/uL (0.0-1.2); ABSOLUTE NEUTROPHILS 13.4 thou/uL (1.6-8.1); BASOPHILS 0.1 %; HEMATOCRIT 32.2 % (42.0-52.0); HEMOGLOBIN 10.6 gm/dL (14.0-18.0); LYMPHOCYTES 4.2 %; MCH 30.3 pg (26.0-34.0); MCHC 32.8 g/dL (28.0-37.0); MCV 92.2 fL (80.0-100.0); MONOCYTES 5.4 %; MPV 7.3 fl. (7.2-11.1); NUCLEATED RBCS 0 /100WBC; PLATELET COUNT* 358 thou/uL (150-400); POLYS 90.3 %; RDW-CV 14.5 % (10.5-14.5); WBC 14.8 thou/uL (4.0-11.0)
[2021-09-12 04:08] LABS: ALBUMIN 2.6 g/dL (3.4-5.0); CALCIUM 8.5 mg/dL (8.5-10.1); CREATININE 0.6 mg/dL (0.6-1.3); POTASSIUM 4.6 mmol/L (3.5-5.1); TOTAL BILIRUBIN 0.5 mg/dL (<0.1-1.0); TOTAL PROTEIN 6.1 g/dL (6.4-8.2)
--- NOTE | 2021-09-12 10:24 | EKG ---
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: DONALD : 1970 Requested By: Malathi Lake Order Number: [id number] Reading MD: Juan Francisco Soto Measurements Intervals [place] Rate: 193 P: 0 AK: QRS: 54 QRSD: 87 T: 254 QT: 240 QTc: 430 Interpretive Statements Supraventricular tachycardia Repolarization abnormality, prob rate related Compared to ECG 09/07/2021 15:53:40 Sinus tachycardia no longer present Electronically Signed On 09-12-2021 10:24:44 CDT by Juan Francisco Soto [email or web address] <ELECTRONICALLY SIGNED> By: Juan Francisco Soto MD, FACC 09/12/21 1024 183 183 Juan Francisco Soto MD, [facility] /EPI
[2021-09-12 11:10] LABS: BE 2.6 mmol/L (-2 to +3); PO2 67.8 mmHg (75.0-100.0); pH 7.331 (7.340-7.450)
[2021-09-12 11:12] LABS: PCO2 57.4 mmHg (35.0-45.0)
[2021-09-12 17:04] LABS: BE -10.6 mmol/L (-2 to +3); PO2 86.7 mmHg (75.0-100.0)
[2021-09-12 17:10] LABS: PCO2 69.1 mmHg (35.0-45.0); pH 7.082 (7.340-7.450)
--- NOTE | 2021-09-13 13:06 | EKG ---
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: : 1970 Requested By: Surinder Montanez Order Number: [id number] Reading MD: Juan Francisco Soto Measurements Intervals [place] Rate: 108 P: 62 AL: 132 QRS: 72 QRSD: 95 T: -76 QT: 344 QTc: 461 Interpretive Statements Sinus tachycardia Low voltage, precordial leads Borderline repolarization abnormality Compared to ECG 09/10/2021 18:33:51 Low QRS voltage now present Supraventricular tachycardia no longer present Electronically Signed On 09-13-2021 13:06:39 CDT by Juan Francisco Soto [email or web address] <ELECTRONICALLY SIGNED> By: Juan Francisco Soto MD, FACC 09/13/21 1306 1023 1023 Juan Francisco Soto MD, FACC /EPI
== END 2021-09-12 17:42 | DRG 870 ==
LOC: M.ERS 08:15 → M.ORTHSURG 09:17 → M.TBA-ER 09:17 → M.ICU 09:17 → M.ORTHSURG 12:42 → M.ICU 08-11 11:24 → M.2W 09-07 05:14 → M.ICU 09-08 14:50
PROVIDERS: Emergency Medicine Emergency Medical Services; Family Medicine; Internal Medicine; Internal Medicine Critical Care Medicine; Pediatrics; ADMIT Internal Medicine; ATTEND Internal Medicine
DX: A41.89 Other specified sepsis (principal); U07.1 COVID-19; J12.82 Pneumonia due to coronavirus disease 2019; J80 Acute respiratory distress syndrome; E87.1 Hypo-osmolality and hyponatremia; B37.0 Candidal stomatitis; J93.9 Pneumothorax, unspecified; I47.1 Supraventricular tachycardia; E66.9 Obesity, unspecified; E11.65 Type 2 diabetes mellitus with hyperglycemia; T38.0X5A Adverse effect of glucocorticoids and synthetic analogues, initial encounter; D69.6 Thrombocytopenia, unspecified; T70.29XA Other effects of high altitude, initial encounter; X58.XXXA Exposure to other specified factors, initial encounter; J98.2 Interstitial emphysema; G47.33 Obstructive sleep apnea (adult) (pediatric); F41.9 Anxiety disorder, unspecified; I11.0 Hypertensive heart disease with heart failure; K56.41 Fecal impaction; I95.9 Hypotension, unspecified; I50.9 Heart failure, unspecified; Z87.820 Personal history of traumatic brain injury; Z88.0 Allergy status to penicillin; Z68.27 Body mass index [BMI] 27.0-27.9, adult; Z82.49 Family history of ischemic heart disease and other diseases of the circulatory system; Z83.3 Family history of diabetes mellitus; Y92.89 Other specified places as the place of occurrence of the external cause; Z51.5 Encounter for palliative care